=== PATIENT | male | born 1965 | race Caucasian/White ===

== ENCOUNTER → 2016-12-02 | Day surgery (SDC) | payer OTHER ==
[2016-12-02] VITALS (9 sets, daily range): BP systolic 125–136; BP diastolic 54–93; PULSE 79–93; RESP 16–19; O2SAT 91–99
[~2016-12-02] VITALS: Ht 170.2 cm; Wt 78.2 kg
[~2016-12-02] MED LIST: ACET-171 PO; Atropine 0.4 mg/mL Inj IVPUSH PRN; Bupivacaine-MPF 0.5% 30 mL Inj INFILTRATE ONE; CeFAZolin 2 Gm/50 mL D5W Duplex Bag IV ONE; CeFAZolin Inj 2 GM in IV Premix 1 EACH IV ONE; Dexamethasone 4 mg/mL Inj IVPUSH PRN; EPHEDrine Sulfate 50 mg/mL Inj IVPUSH PRN; EPHEDrine/NS 5 mg/mL 5 mL Syringe ONE; HYDROmorphone 1 mg/mL Inj IVPUSH PRN; IBUP-1827 PO; Labetalol 5 mg/mL 20 mL Inj IV PRN; Lactated Ringer's 1,000 ML IV SCH; Lactated Ringer's 500 ML IV PRN; MetoCLOpramide 5 mg/mL 2 mL Inj IVPUSH PRN; OMEP20CA11 PO; OXYC-530 PO; Ondansetron 2 mg/mL 2 mL Inj IVPUSH PRN; Ondansetron 2 mg/mL 2 mL Inj ONE; POLY17PO6 PO; Phenylephrine 10,000 mCg/mL Inj IVPUSH PRN; Propofol 10,000 mCg/mL 20 mL Inj ONE; Succinylcholine Chloride 20 mg/mL 5 mL Inj ONE; fentaNYL-PF 50 mCg/mL 2 mL Inj IVPUSH PRN; fentaNYL-PF 50 mCg/mL 2 mL Inj ONE; hydrALAZINE 20 mg/mL Inj IVPUSH PRN
--- NOTE | 2016-12-02 06:59 | PCM.HPANE ---
Patient Data Date of Service: Dec 02, 2016 Surgeon Admitting Provider: Attending Provider:Michelle Jennings MD Primary Care Physician:Lila Handley Other Provider:Crystal Mcdonnell Anesthesia Reason for Visit Left Inguinal Hernia Ht/WT & BMI Height (Feet): 5 Height (Inches): 7 Weight (Kilograms): 78.2 Body Mass Index 27.00 Allergies Coded Allergies: No Known Allergies (Unverified , 11/24/16) Past Anesthesia History Anesthesia History: Positive for:: Anesthesia Reactions (awakened during surgery in past, high tolerance to meds), Denies:: Abnormal Airway, Difficult Intubation, Fam Anesthesia Reaction, Fam Malignant Hypertherm, Malignant Hyperthermia Diabetes History Hx Diabetes?: No MRSA MRSA: No Medications Hypertension Medication: No Home Meds Incl Beta Vickie: No Reported Medications Omeprazole 20 Mg Capsule.dr20 Mg PO Q2DAY Ref 0 11/24/16 History History of ENT Problems?: Yes HEENT History: Positive for:: Hearing Problem Denies:: Abnormal Airway Cataracts Difficult Intubation Dysphagia Glaucoma Sinus Problem TMJ Denture Type: None Teeth Condition: Within Normal Limits Other HEENT Pertinent History: hx of corneal pineda Hx of Heart Problems?: No Cardiovascular History: Denies:: AICD Abdominal Aortic Aneurism Atrial Fibrillation Chest Pain Coronary Artery Disease Edema Heart Murmur Hypertension Irregular Heartbeat Pacemaker Peripheral Vascular Hx of Respiratory Problem?: No Respiratory History: Denies:: Asthma COPD Emphysema Oxygen Administration Pneumonia Tuberculosis Use of C-PAP Machine Hx Neurologic Problems?: Yes Neurological History: Denies:: CVA Headaches Multiple Sclerosis Parkinson's Disease Seizures TIA Other Neurological Pertinent: post herpetic neuralgias Hx of GI Problems?: Yes Gastrointestinal History: Positive for:: Gastroesphageal Reflux (omeprazole started 09/2016, controlled well) Other GI Pertinent History: left inguinal hernia current admission problem Hx of Problems?: No Genitourinary History: Denies:: Kidney Stones Urinary Tract Infection Male Hx: Denies:: Prostate Problems Scrotal Mass Testicular Surgery Skin History: Denies:: History Skin Disorders? Pressure Ulcers Hx Musculoskeletal Problems?: Yes Musculoskeletal History: Positive for:: Musculoskeletal Trauma (right shoulder current seeing PT for injury) Denies:: Back Injury Degenerative Joint Fibromyalgia Systemic Lupus Hx of Psycho/Social Problems?: No Psycho Social History: Denies:: Anxiety Hx Depression Hx Surgeries?: Yes (right inguinal hernia, umb hernia, epigastric ) Hx Any Other Health Problems?: Yes Other History: Denies:: Cancer Thyroid Disease History Blood Transfusions: Positive for:: Accept Blood Products? Denies:: Blood Transfusions Hx Diabetes: No Hx Alcohol Use: YesAlcoholic Drinks Per Day: 3-6 drinks daily on averageHx Substance Use: Yes (marijuana- smokes, vapes, occasional edible) Smoking Status: Current Every Day Smoker Have You Smoked inLast 12 mo: Yes Stop/Bang Treated for Sleep Apnea?: No Do You Have a CPAP Machine?: No S-Snoring: Do You Snore Loudly: No T-Tired: feel tired, fatigued: No O-Obsered: Observed not breath: No P-Blood Pressure: treated: No B- Body Mass Index > 35 kg/m2: No A- Age over 50: No N- Neck Large Circumference: No G- Gender Male: Yes HENRIK Total Score: 1 HENRIK Risk Assessment: Low Risk, <3 Yes Risk Assessment Category Category 1A: Patient has history of documented sleep apnea, and HAS NOT received any narcotic, sedative or anesthesia administration during this stay. Category 1B: Patient has history of documented sleep apnea, and HAS received any narcotic , sedative or anesthesia administration during this stay Category 2: Patient has SUSPECTED Obstructive Sleep Apnea, and HAS received any narcotic , sedative or anesthesia administration during this stay. Category 3: Patient has SUSPECTED Obstructive Sleep Apnea and HAS NOT received narcotic, sedative or anesthesia administration during this stay. Category 4: Outpatient in Procedural Areas with known sleep apnea or who screen positive for High Risk via the STOP/BANG questionnaire. Exam Exam Vital Signs Vital Signs Date Time Temp Pulse Resp B/P Pulse Ox O2 Delivery O2 Flow Rate FiO2 12/02/16 06:11 36.8 83 16 136/90 98 Room Air General Appearance: Alert, Oriented X3, Cooperative HEENT/AIRWAY: MP 2, Neck Movement (Full), Mouth Opening (Wide) Lungs: Clear to Auscultation, Normal Air Movement Heart: Regular Rate/Rhythm, Normal S1, Normal S2 Plan Impression Patient chart reviewed, patient interviewed and anesthestic plan with risks, benefits, and alternatives discussed, and informed consent obtained. NPO per Anesth. Guidelines: Yes ASA Physical Status: ASA2 Mod Systemic Disease Anesthetic Plan: GA Bene/Risks/Altern/Consents: Yes HP Complete Prior to Induction: Yes Keith Morse MD Dec 02, 2016 06:59
--- NOTE | 2016-12-02 09:21 | PCM.SURGOP ---
Surgical Operative Report Date of Service: Dec 02, 2016 Pre Operative Diagnosis Left inguinal hernia Post Operative Diagnosis Indirect left internal hernia Procedure: Open left inguinal hernia repair with mesh Surgeon and Housekeeper Manager: Surgeon: Michelle Jennings MD Assistants: Shana Boyle M.D. R3; Teressa Leon, MS 3 Indication for Procedure This is a 51-year-old male who presented as an outpatient with an intermittent painful bulge in the left groin, consistent with inguinal hernia. He desired repair. Findings: Indirect left internal hernia with a small sac without incarcerated viscera. The floor was weak, but there was no direct hernia. Procedure Details The patient was brought to the operating room and placed in supine position. General anesthesia with an LMA was smoothly induced. A warming blanket and SCDs were placed. Antibiotics were infused. The operative field was prepped and draped in sterile fashion. A pause was performed to confirm the correct patient, procedure, site, and side. An oblique incision was made between the ASIS and pubic tubercle. Subcutaneous tissue was dissected with electrocautery. The external oblique was incised sharply and divided with Metzenbaum scissors. The spermatic cord was identified, dissected free of surrounding tissues, and surrounded with a [place] drain for retraction. The cremasteric muscles along the spermatic cord were spread and divided to expose the indirect hernia sac, which was small. It was opened and then dissected off of the spermatic cord. There were no incarcerated viscera. Care was taken to preserve the spermatic cord contents, including the vas deferens and visible vasculature. It was ligated high using a 3-0 Vicryl, amputated, discarded, and the stump was reduced after hemostasis was confirmed. A cord lipoma was identified and removed as well, also with care taken to avoid injury to cord structures. Attention was then turned to mesh placement. The direct space was noted to be thinned but without a hernia defect. A piece of 3 inch by 6 inch ultralight Bard Softmesh was fashioned to size with care taken to provide adequate coverage of the floor. Interrupted 3-0 PDS stitches were then used to suture it into place. The first stitch was placed in the tissue overlying the pubic tubercle with greater than 1 cm of overlap to prevent recurrence. Additional stitches were then used at 1.5 cm intervals to suture the lateral aspect of the mesh to the shelving edge of the inguinal ligament. Two stitches were then placed medially to affix the mesh to the conjoined tendon. At the end of the case, the floor was covered with mesh. Two tails were fashioned to recreate the internal ring. These were sutured to each other and to the shelving edge of the inguinal ligament. The new ring was large enough to pass the cord and the tip of the surgeon's fifth digit. The Jae drain was removed and the external oblique was then closed with a running 3-0 Vicryl stitch. Subcutaneous tissue was closed with 3-0 Vicryl stitches. The skin was closed with a running 4-0 Monocryl stitch. Marcaine 0.5% with epinephrine was infused in the skin for postoperative analgesia. A sterile dressing was placed. The patient was awakened from general anesthesia and taken to postoperative care unit in good condition. Complications There were no periprocedural complications identified. Surgical Specimen Removed: Yes Specimen sent to Pathology: No Surgical Specimen description: Cord lipoma, hernia sac Anesthetic Plan: GA Grafts, Implants: Implants-See Implant Record Output, Estimated Blood Loss: 5 (ml) Blood Administration during garcia: No Michelle Jennings MD Dec 02, 2016 09:21
--- NOTE | 2016-12-02 10:37 | PCM.ANEP1 ---
Post Anesthesia PACU Phase 1 Assessment Date of Service: Dec 02, 2016 Vital Signs Vital Signs Date Time Temp Pulse Resp B/P Pulse Ox O2 Delivery O2 Flow Rate FiO2 12/02/16 09:50 83 16 125/54 96 Room Air 12/02/16 09:41 36.7 79 16 126/74 91 Room Air 12/02/16 09:30 81 17 131/84 94 Nasal Cannula 1 12/02/16 09:25 93 Nasal Cannula 3 12/02/16 09:20 36.8 85 16 131/86 95 Room Air 12/02/16 09:15 85 17 130/87 99 Room Air 12/02/16 09:10 93 19 132/86 99 Simple Mask 9 12/02/16 09:05 36.9 136/93 12/02/16 06:11 36.8 83 16 136/90 98 Room Air Anesthetic Administered: GA Level of Alertness: Awake, talking SANTANA's with Equal Strength: Yes Pain: No Nausea or Vomiting: No CV Function & Hydration Stable: Yes Airway Device: Oxygen Delivery: Simple Mask Lungs: Normal Air Movement Dermatome Level: Full Sensation PACU Phase 2 Assessment Complications: No Follow up Care: N/A Patient Instructions Provided: N/A Keith Morse MD Dec 02, 2016 10:37
--- NOTE | 2016-12-02 18:02 | PCM.SURGPO ---
Immediate Operative Note Date of Surgery: Dec 02, 2016 Pre Operative Diagnosis Left reducible inguinal hernia Post Operative Diagnosis Left reducible inguinal hernia Procedure Left open inguinal hernia repair with mesh Surgeon and Adult Caregiver Surgeon: Michelle Jennings MD Assistants: Shana Boyle MD and Teressa Leon MS3 Findings Left indirect inguinal hernia Complications There were no periprocedural complications identified. Surgical Specimen Removed: Yes Specimen sent to Pathology: No Surgical Specimen description: Cord lipoma, hernia sac Anesthetic Administered: GA Grafts, Implants: Implants-See Implant Record (Bard lightweight mesh) Output, Estimated Blood Loss: 5 (ml) Blood Admin during surgery: No Shana Boyle MD Dec 02, 2016 18:02
== END | disposition home or self-care (01) ==
LOC: SAS 05:49
PROVIDERS: ATTEND Surgery
DX: K40.90 Unilateral inguinal hernia, without obstruction or gangrene, not specified as recurrent (principal); K21.9 Gastro-esophageal reflux disease without esophagitis; F12.90 Cannabis use, unspecified, uncomplicated; Z87.891 Personal history of nicotine dependence
CPT/HCPCS: 49505; C1781; J0330; J0690; J2250; J2405; J2704; J3010; J7120